=== PATIENT | male | born 1970 | race Caucasian/White ===

== ENCOUNTER 2017-03-29 14:51 | Emergency (ER) | payer OTHER ==
--- NOTE | 2017-03-29 15:11 | ED ---
Chest Pain HPI - General Chief Complaint: Chest Pain Stated Complaint: chest pain Time Seen by Provider: 03/29/17 14:51 Source: patient, EMS, RN notes reviewed Mode of arrival: EMS Limitations: no limitations - History of Present Illness Initial Comments: This is a 46-year-old male with a month history of heroin addiction who is currently in rehab now on fourth day who was brought in for evaluation of chest pain. He states he was having some lower midsternal upper abdominal burning type discomfort ulcerated to his left upper chest get worse with certain positional movements and better after belching and then after structure noted when away but then he states he sat up and vomited. After vomiting he had no further pain. Is currently in treatment for heroin abuse is on Suboxone is on a tapering dose. He has a cough fevers chills sweats or other symptoms he has no known history of heart or lung disease is a nonsmoker bra was he states he is in good health MD Complaint: chest pain - Related Data Home Medications Medication Instructions Recorded Confirmed Acetaminophen Tab [Tylenol Tab] 650 mg PO Q4H PRN MDD 6 tablets 03/29/17 Buprenorphine HCl [Subutex] 4 mg SUBLINGUAL BID 03/29/17 03/29/17 Buprenorphine HCl [Subutex] 4 mg SUBLINGUAL DAILY 03/29/17 03/29/17 Calcium 1000mg/Magnesium 500mg 1 tab PO TID PRN 03/29/17 03/29/17 Chlorpheniramine Maleate 4 mg PO Q4H PRN MDD 4 doses 03/29/17 03/29/17 [Chlor-Trimeton] Gabapentin [Neurontin] 800 mg PO TID@0630,1530,2200 03/29/17 03/29/17 Ibuprofen [Motrin] 600 mg PO Q6HR PRN 03/29/17 03/29/17 Multivitamins, Thera [Multivitamin 1 tab PO DAILY 03/29/17 03/29/17 (formulary)] Ondansetron HCl [Zofran] 8 mg PO Q6H PRN 03/29/17 03/29/17 Ondansetron [Zofran] 4 mg IM Q6H PRN 03/29/17 03/29/17 Thiamine [Vitamin B-1] 100 mg PO DAILY 03/29/17 03/29/17 busPIRone HCl [Buspar] 10 mg PO TID PRN 03/29/17 03/29/17 cloNIDine HCL [Catapres] 0.1 mg PO Q4H PRN 03/29/17 03/29/17 guaiFENesin [Guaifenesin] 200 mg PO Q4H PRN 03/29/17 03/29/17 traZODone HCL 50 mg PO HS PRN 03/29/17 03/29/17 Previous Rx's Medication Instructions Recorded Ibuprofen 800 mg PO Q6HR PRN #20 tablet 03/29/17 Allergies Allergy/AdvReac Type Severity Reaction Status Date / Time No Known Allergies Allergy Verified 03/29/17 15:50 Review of Systems ROS Statement: Those systems with pertinent positive or pertinent negative responses have been documented in the HPI. ROS Other: All systems not noted in ROS Statement are negative. EKG Findings - EKG Results: EKG: interpreted by ERMD, sinus rhythm (Says bradycardia rate of 56. 148 QRS 86 daily since QTC of 14 this is unchanged from submitted by EMS.) Past Medical History Additional Past Medical History / Comment(s): chronic back pain History of Any Multi-Drug Resistant Organisms: None Reported Past Surgical History: Orthopedic Surgery Additional Past Surgical History / Comment(s): rt ankle Past Psychological History: Depression Smoking Status: Current every day smoker Past Alcohol Use History: Occasional Past Drug Use History: Cocaine, Heroin, IV Drug Use, Marijuana General Exam - General Exam Comments Initial Comments: This is a well-developed well-nourished awake alert oriented times 3 male Limitations: no limitations General appearance: alert, in no apparent distress Head exam: Present: atraumatic, normocephalic, normal inspection Eye exam: Present: normal appearance, PERRL, EOMI. Absent: scleral icterus, conjunctival injection, periorbital swelling ENT exam: Present: normal exam, mucous membranes moist Neck exam: Present: normal inspection. Absent: tenderness, meningismus, lymphadenopathy Respiratory exam: Present: normal lung sounds bilaterally, chest wall tenderness (Reproducible tenderness palpation over left costochondral and costosternal angle). Absent: respiratory distress, wheezes, rales, rhonchi, stridor Cardiovascular Exam: Present: regular rate, normal rhythm, normal heart sounds. Absent: systolic murmur, diastolic murmur, rubs, gallop, clicks GI/Abdominal exam: Present: soft, normal bowel sounds. Absent: distended, tenderness, guarding, rebound, rigid Extremities exam: Present: normal inspection, full ROM, normal capillary refill. Absent: tenderness, pedal edema, joint swelling, calf tenderness Back exam: Present: normal inspection Neurological exam: Present: alert, oriented X3, CN II-XII intact Psychiatric exam: Present: normal affect, normal mood Skin exam: Present: warm, dry, intact, normal color. Absent: rash Course Vital Signs 03/29/17 14:58 Temperature 98.2 F Pulse Rate 59 L Respiratory 18 Rate Blood Pressure 139/85 O2 Sat by Pulse 99 Oximetry Chest Pain MDM - MDM I did discuss the findings with the patient the presentation consistent with costochondritis. Patient will be discharge is follow-up as needed he'll be placed on Motrin for pain Disposition Clinical Impression: Costalchondritis, Chest wall syndrome Disposition: HOME SELF-CARE Condition: Good Instructions: Costochondritis (ED) Prescriptions: Ibuprofen 800 mg PO Q6HR PRN #20 tablet PRN Reason: Pain Referrals: None,Stated [Primary Care Provider] - 1-2 days
[2017-03-29 15:59] LABS: Basophils # (A) 0.1 k/uL (0-0.2); Basophils % (A) 1 %; CH 34.1; CHCM 36.3; Eosinophils # (A) 0.1 k/uL (0-0.7); Eosinophils % (A) 2 %; HCT 42.7 % (39.0-53.0); HDW 2.79; HGB 15.1 gm/dL (13.0-17.5); Luc % (Auto) 3; Lymphocytes % (A) 33 %; MCH 33.3 pg (25.0-35.0); MCHC 35.3 g/dL (31.0-37.0); MCV 94.3 fL (80.0-100.0); Mean Platelet Volume 6.3; Monocytes # (A) 0.4 k/uL (0-1.0); Monocytes % (A) 6 %; Neutrophils # (A) 3.3 k/uL (1.3-7.7); Neutrophils % (A) 54 %; RBC 4.53 m/uL (4.30-5.90); RDW 12.9 % (11.5-15.5); WBC 6.1 k/uL (3.8-10.6); WBC (Perox) 5.91
[2017-03-29 16:09] LABS: ALT 46 U/L (21-72); AST 33 U/L (17-59); Alkaline Phosphatase 51 U/L (38-126); Amylase 62 U/L (30-110); Anion Gap 7 mmol/L; Blood Urea Nitrogen 15 mg/dL (9-20); Calcium 9.3 mg/dL (8.4-10.2); Carbon Dioxide 29 mmol/L (22-30); Chloride 102 mmol/L (98-107); Glucose 86 mg/dL (74-99); INR 0.9 (<1.1); Magnesium 2.3 mg/dL (1.6-2.3); Non-African American GFR(MDRD) >60 (>60 ml/min/1.73 sqM); Partial Thromboplastin Time 23.2 sec (22.0-30.0); Potassium 4.6 mmol/L (3.5-5.1); Prothrombin Time 9.7 sec (9.0-12.0); Sodium 138 mmol/L (137-145); Total Bilirubin 0.3 mg/dL (0.2-1.3); Total Protein 6.2 g/dL (6.3-8.2)
--- NOTE | 2017-03-29 16:13 | XR ---
EXAMINATION TYPE: XR chest 2V DATE OF EXAM: 03/29/2017 COMPARISON: NONE INDICATION: Chest pain TECHNIQUE: Frontal and lateral views of the chest are obtained. FINDINGS: The heart size is normal. The pulmonary vasculature is normal. The lungs are clear. IMPRESSION: 1. No acute pulmonary process.
[2017-03-29 16:24] LABS: Creatine Kinase 193 U/L (55-170)
[2017-03-29 16:37] LABS: Troponin I <0.012 ng/mL (0.000-0.034)
[2017-03-29 17:21] VITALS: BP 151/88; PULSE 67; RESP 16; TEMP 98.7
== END 2017-03-29 17:25 | disposition home or self-care (01) ==
LOC: EC 14:51
DX: M94.0 Chondrocostal junction syndrome [Tietze] (principal); R07.1 Chest pain on breathing; F32.9 Major depressive disorder, single episode, unspecified; F17.200 Nicotine dependence, unspecified, uncomplicated; Z79.899 Other long term (current) drug therapy
CPT/HCPCS: 36415; 71020; 80053; 82150; 82550; 82553; 83690; 83735; 84484; 85025; 85379; 85610; 85730; 93005; 99285